=== PATIENT | female | born 1990 | race Caucasian/White ===

== ENCOUNTER 2018-11-21 13:40 | Inpatient (IN) | payer MEDICAID ==
[~2018-11-21] VITALS: Ht 172.7 cm; Wt 104.3 kg
[2018-11-21] MEDS ORDERED: LACT. RINGERS/OXYTOCIN 20UNITS 1,000 ML IV ONE (14:04)
[2018-11-21] MEDS ORDERED: LIDOCAINE 2%HCL (LOCAL ANESTH.) INJ 20ML MDV ONE (14:04)
[2018-11-21] MEDS ORDERED: PHISODERM TOP SOLN 240ML BTL TOP ONE (14:05)
[2018-11-21] MEDS ORDERED: IBUPROFEN 600 MG TAB PO PRN (14:45)
[2018-11-21 15:27] LABS: Hematocrit 37.2 % (36.0-46.0); Hemoglobin 12.3 g/dL (12.2-16.2); Mean Corpuscular Hemoglobin 29.7 pg (28.0-32.0); Mean Corpuscular Volume 89.9 fL (80.0-100.0); Platelet Count (auto) 219 10^3/uL (140-450); Red Blood Cells 4.14 10^6/uL (4.0-5.20); Red Cell Distribution Width 13.8 % (11.8-14.3); White Blood Cell 12.8 10^3/uL (4.4-10.8)
[2018-11-21 15:32] LABS: Basophils % (manual) 0 (0.0-2.0); Blast Cells 0; Eosinophils % (manual) 0 (0-7); Metamyelocytes % 0; Myelocytes % 0; Promyelocytes % 0; Reactive Lymphocytes 0
--- NOTE | 2018-11-21 15:38 | NUR ---
Ambulation: Patient OOB with standby assistance by RN. Patient ambulated to bathroom with steady gait. Patient unable to void at this time. [facility] teaching provided with returned demonstration by patient. Clean gown provided and bed linen changed. Patient ambulated back to bed with steady gait and no distress noted.
[2018-11-21] MEDS ORDERED: PHISODERM TOP SOLN 240ML BTL TOP PRN (15:45)
[2018-11-21] MEDS ORDERED: WITCH HAZEL-GLYCERIN PAD TOP PRN (15:45)
[2018-11-21] MEDS ORDERED: DERMOPLAST 60ML BOTTLE TOP PRN (15:45)
[2018-11-21 16:02] LABS: Urine Bacteria NONE SEEN /hpf (None Seen); Urine Blood 2+ /uL (Negative); Urine Mucus FEW (None Seen); Urine Specific Gravity 1.029 (1.001-1.035); Urine WBC 2 /hpf (0 - 5)
[2018-11-21 16:05] LABS: Albumin 2.7 g/dL (3.4-5.0); Calcium 8.5 mg/dL (8.5-10.1); Potassium 3.9 mmol/L (3.5-5.1)
[2018-11-21 16:09] LABS: Alcohol, Urine < 3.0 mg/dL (0-5); Amphetamine Screen, Urine NEGATIVE (NEGATIVE); Barbiturate Scree,Urine NEGATIVE (NEGATIVE); Benzodiazephine Screen, Urine NEGATIVE (NEGATIVE); Cannabinoid Screen, Urine NEGATIVE (NEGATIVE); Cocaine Screen, Urine NEGATIVE (NEGATIVE); Opiate Scree,Urine NEGATIVE (NEGATIVE); Phencyclidine Screen, Urine NEGATIVE (NEGATIVE)
[2018-11-21 16:10] LABS: BUN/Creatinine Ratio 10.8; Bilirubin, Total 0.6 mg/dL (0.2-1.0); Total Protein 7.1 g/dL (6.4-8.2)
[2018-11-21 16:46] VITALS: BP 132/68
[2018-11-21 17:05] LABS: Band Neutrophils % (manual) 6; Lymphocytes % (manual) 4 (10.0-50.0); Monocytes % (manual) 3 (0-12)
[2018-11-21 19:00] VITALS: BP 121/59
[2018-11-21 23:00] VITALS: BP 106/52
[2018-11-22 03:00] VITALS: BP 110/52
[2018-11-22 07:00] VITALS: BP 107/53
[2018-11-22] MEDS ORDERED: TUBERCULIN PPD 5 UNIT/0.1 ML ID ONE (07:45)
[2018-11-22] MEDS ORDERED: PRENCAP PO (10:55)
[2018-11-22 11:20] VITALS: BP 118/67
--- NOTE | 2018-11-22 11:50 | NUR ---
REPORT PT REPORT RECEIVED FROM Johanne BUSTILLO RN ON STABLE PATIENT, ASSUMING CARE. NO S/S OF DISTRESS OR SOB NOTED.
--- NOTE | 2018-11-22 14:30 | NUR ---
Discharge: Discharge instructions given as ordered. Pt encouraged to follow up with CLAIMS REPRESENTATIVE as instructed. All questions and concerns addressed. Patient verbalized understanding. Medication reconciliation completed and copy given to patient. Patient encouraged to prepare to depart unit.
[2018-11-22 15:10] VITALS: BP 116/61
--- NOTE | 2018-11-22 17:35 | NUR ---
Discharge: Patient taken to vehicle via wheelchair with all personal belongings, accompanied by staff and family member. No distress noted at time of departure, no adverse changes in status since initial assessment.
[2018-11-23 15:58] LABS: RPR Non Reactive (Non Reactive)
== END 2018-11-22 17:35 | disposition home or self-care (01) | DRG 560 ==
LOC: LDRP 13:40 → OBSVTOIN 13:40 → LDRP 17:10
PROVIDERS: ADMIT Specialist; ATTEND Specialist
PROC: 10E0XZZ Delivery of Products of Conception, External Approach (ICD-10-PCS; principal; 2018-11-21)
DX: O63.1 Prolonged second stage (of labor) (principal); Z37.0 Single live birth; Z3A.39 39 weeks gestation of pregnancy
CPT/HCPCS: 36415; 59025; 59409; 80053; 80307; 81001; 81002; 85007; 85027; 86592; 86850; 86900; 86901; 96365; 96366; G0378; J2590

== ENCOUNTER 2021-01-18 11:00 | Observation (INO) | payer MEDICAID ==
[~2021-01-18 11:00] MED LIST: PRENCAP PO
== END 2021-01-18 17:05 | disposition home or self-care (01) ==
LOC: LDRP 16:17
PROVIDERS: ADMIT Specialist; ATTEND Specialist
DX: O99.891 Other specified diseases and conditions complicating pregnancy (principal); N13.30 Unspecified hydronephrosis; Z3A.30 30 weeks gestation of pregnancy
CPT/HCPCS: 59025; 76818; 81002; G0378

== ENCOUNTER 2021-01-25 09:24 | Observation (INO) | payer MEDICAID | END 2021-01-25 14:16 | disposition home or self-care (01) | LOC: LDRP 13:16 | PROVIDERS: ADMIT Obstetrics & Gynecology; ATTEND Obstetrics & Gynecology | DX: O99.891 Other specified diseases and conditions complicating pregnancy (principal); N13.30 Unspecified hydronephrosis; Z3A.31 31 weeks gestation of pregnancy; Z87.891 Personal history of nicotine dependence | CPT/HCPCS: 59025; 76818; 81002; 94760; G0378 ==

== ENCOUNTER 2021-02-01 08:17 | Observation (INO) | payer MEDICAID ==
[~2021-02-01] VITALS: Ht 172.7 cm; Wt 99.8 kg
== END 2021-02-01 10:00 | disposition home or self-care (01) ==
LOC: LDRP 08:17
PROVIDERS: ADMIT Specialist; ATTEND Specialist
DX: O40.3XX0 Polyhydramnios, third trimester, not applicable or unspecified (principal); Z3A.32 32 weeks gestation of pregnancy
CPT/HCPCS: 59025; 76818; 81002; G0378

== ENCOUNTER 2021-02-06 15:07 | Observation (INO) | payer MEDICAID | END 2021-02-06 17:40 | disposition home or self-care (01) | LOC: LDRP 15:07 | PROVIDERS: ADMIT Obstetrics & Gynecology; ATTEND Obstetrics & Gynecology | DX: O99.891 Other specified diseases and conditions complicating pregnancy (principal); N13.0 Hydronephrosis with ureteropelvic junction obstruction; Z3A.33 33 weeks gestation of pregnancy | CPT/HCPCS: 59025; 76818; 81002; 94760; G0378 ==

== ENCOUNTER 2021-02-15 09:00 | Observation (INO) | payer MEDICAID | END 2021-02-15 10:08 | disposition home or self-care (01) | LOC: LDRP 09:00 | PROVIDERS: ADMIT Obstetrics & Gynecology; ATTEND Obstetrics & Gynecology | DX: O99.891 Other specified diseases and conditions complicating pregnancy (principal); N13.30 Unspecified hydronephrosis; Z3A.34 34 weeks gestation of pregnancy | CPT/HCPCS: 59025; 76818; 81002; G0378 ==

== ENCOUNTER 2021-02-22 09:30 | Observation (INO) | payer MEDICAID | END 2021-02-22 11:29 | disposition home or self-care (01) | LOC: LDRP 09:30 | PROVIDERS: ADMIT Specialist; ATTEND Specialist | DX: O35.8XX0 Maternal care for other (suspected) fetal abnormality and damage, not applicable or unspecified (principal); Z3A.35 35 weeks gestation of pregnancy | CPT/HCPCS: 59025; 76818; 81002; G0378 ==

== ENCOUNTER 2021-03-01 10:32 | Observation (INO) | payer MEDICAID | END 2021-03-01 11:35 | disposition home or self-care (01) | LOC: LDRP 10:32 | PROVIDERS: ADMIT Obstetrics & Gynecology; ATTEND Obstetrics & Gynecology | DX: O35.8XX0 Maternal care for other (suspected) fetal abnormality and damage, not applicable or unspecified (principal); Z3A.36 36 weeks gestation of pregnancy | CPT/HCPCS: 59025; 76818; 81002; G0378 ==

== ENCOUNTER 2021-03-08 16:10 | Observation (INO) | payer MEDICAID | END 2021-03-08 17:00 | disposition home or self-care (01) | LOC: LDRP 16:10 | PROVIDERS: ADMIT Specialist; ATTEND Specialist | DX: O99.891 Other specified diseases and conditions complicating pregnancy (principal); N13.30 Unspecified hydronephrosis; Z3A.37 37 weeks gestation of pregnancy | CPT/HCPCS: 59025; 76818; 81002; G0378 ==

== ENCOUNTER 2021-03-14 19:13 | Observation (INO) | payer MEDICAID ==
[~2021-03-14] VITALS: Ht 172.7 cm; Wt 99.8 kg
[2021-03-14 21:37] LABS: Alcohol, Urine < 3.0 mg/dL (0-10); Amphetamine Screen, Urine NEGATIVE (NEGATIVE); Barbiturate Scree,Urine NEGATIVE (NEGATIVE); Benzodiazephine Screen, Urine NEGATIVE (NEGATIVE); Cannabinoid Screen, Urine NEGATIVE (NEGATIVE); Cocaine Screen, Urine NEGATIVE (NEGATIVE); Opiate Scree,Urine NEGATIVE (NEGATIVE); Phencyclidine Screen, Urine NEGATIVE (NEGATIVE)
== END 2021-03-14 20:35 | disposition home or self-care (01) ==
LOC: LDRP 19:13
PROVIDERS: ADMIT Obstetrics & Gynecology; ATTEND Obstetrics & Gynecology
DX: O99.891 Other specified diseases and conditions complicating pregnancy (principal); N13.30 Unspecified hydronephrosis; O62.9 Abnormality of forces of labor, unspecified; Z3A.38 38 weeks gestation of pregnancy
CPT/HCPCS: 59025; 76818; 80307; 81002; G0378

== ENCOUNTER 2021-03-21 19:07 | Observation (INO) | payer MEDICAID ==
[~2021-03-21] VITALS: Ht 172.7 cm; Wt 103.4 kg
== END 2021-03-21 20:19 | disposition home or self-care (01) ==
LOC: LDRP 19:07
PROVIDERS: ADMIT Obstetrics & Gynecology; ATTEND Obstetrics & Gynecology
DX: O99.891 Other specified diseases and conditions complicating pregnancy (principal); N13.30 Unspecified hydronephrosis; Z3A.39 39 weeks gestation of pregnancy
CPT/HCPCS: 59025; 76818; 81002; G0378

== ENCOUNTER 2021-03-24 12:00 | Observation (INO) | payer MEDICAID | END 2021-03-24 13:30 | disposition home or self-care (01) | LOC: LDRP 12:00 | PROVIDERS: ADMIT Specialist; ATTEND Specialist | DX: O48.0 Post-term pregnancy (principal); Z3A.40 40 weeks gestation of pregnancy | CPT/HCPCS: 59025; 76818; 81002; G0378 ==

== ENCOUNTER 2021-03-25 06:45 | Inpatient (IN) | payer MEDICAID ==
[~2021-03-25] VITALS: Ht 172.7 cm; Wt 90.7 kg
[2021-03-25] MEDS ORDERED: WITCH HAZEL-GLYCERIN PAD TOP PRN (07:30)
[2021-03-25] MEDS ORDERED: LACTATED RINGER'S 1,000 ML IV SCH (07:30)
[2021-03-25] MEDS ORDERED: PHISODERM TOP SOLN 240ML BTL TOP PRN (07:30)
[2021-03-25] MEDS ORDERED: DERMOPLAST 60ML BOTTLE TOP PRN (07:30)
[2021-03-25 07:53] LABS: Basophils # (auto) 0 10 ^3/uL (0-0.2); Basophils % (auto) 0.2 % (0.0-2.0); Eosinophils # (auto) 0 10 ^3/uL (0-0.8); Eosinophils % (auto) 0.3 % (0.0-7.0); Hematocrit 34.1 % (36.0-46.0); Lymphocytes # (auto) 1.2 10 ^3/uL (0.4-5.4); Lymphocytes % (auto) 10.9 % (10.0-50.0); Mean Corpuscular Hemoglobin 31.9 pg (28.0-32.0); Mean Corpuscular Hgb Conc. 35.3 g/dL (32.0-36.0); Mean Corpuscular Volume 90.5 fL (80.0-100.0); Monocytes # (auto) 0.5 10 ^3/uL (0-1.3); Monocytes % (auto) 4.9 % (0.0-12.0); Neutrophils # (auto) 9.2 10 ^3/uL (1.6-8.6); Neutrophils % (auto) 83.7 % (37.0-80.0); Platelet Count (auto) 187 10^3/uL (140-450); Red Blood Cells 3.76 10^6/uL (4.0-5.20); Red Cell Distribution Width 13.3 % (11.8-14.3); White Blood Cell 10.9 10^3/uL (4.4-10.8)
[2021-03-25 08:07] LABS: INR 0.94 (0.9-1.15); Partial Thromboplastin Time 23.4 sec (23.0-31.2)
[2021-03-25 08:13] LABS: Albumin 2.5 g/dL (3.4-5.0); BUN/Creatinine Ratio 11.3; Calcium 8.3 mg/dL (8.5-10.1); Potassium 3.4 mmol/L (3.5-5.1)
[2021-03-25 08:16] LABS: Bilirubin, Total 0.9 mg/dL (0.2-1.0); Total Protein 6.6 g/dL (6.4-8.2)
[2021-03-25] MEDS ORDERED: IBUPROFEN 600 MG TAB PO PRN (08:30)
[2021-03-25] MEDS ORDERED: LACT. RINGERS/OXYTOCIN 20UNITS 500 ML IV ONE ×2 (08:30→09:00)
[2021-03-25] MEDS ORDERED: ACETAMINOPHEN 325 MG TAB PO PRN (08:30)
[2021-03-25 10:40] VITALS: BP 116/66
[2021-03-25 11:52] LABS: Urine Bacteria NONE SEEN /hpf (None Seen); Urine Blood 3+ /uL (Negative); Urine Specific Gravity 1.004 (1.001-1.035); Urine WBC 43 /hpf (0 - 5)
[2021-03-25 12:08] LABS: Alcohol, Urine < 3.0 mg/dL (0-10); Amphetamine Screen, Urine NEGATIVE (NEGATIVE); Barbiturate Scree,Urine NEGATIVE (NEGATIVE); Benzodiazephine Screen, Urine NEGATIVE (NEGATIVE); Cannabinoid Screen, Urine NEGATIVE (NEGATIVE); Cocaine Screen, Urine NEGATIVE (NEGATIVE); Opiate Scree,Urine NEGATIVE (NEGATIVE); Phencyclidine Screen, Urine NEGATIVE (NEGATIVE)
[2021-03-25 15:00] VITALS: BP 110/55
[2021-03-25 18:52] VITALS: BP 117/57
[2021-03-25 23:10] VITALS: BP 98/53
[2021-03-26 03:23] VITALS: BP 99/50
[2021-03-26 06:07] LABS: RPR Non Reactive (Non Reactive)
[2021-03-26 06:51] VITALS: BP 135/62
== END 2021-03-26 10:05 | disposition home or self-care (01) | DRG 560 ==
LOC: LDRP 06:45
PROVIDERS: ADMIT Obstetrics & Gynecology; ATTEND Obstetrics & Gynecology
PROC: 10E0XZZ Delivery of Products of Conception, External Approach (ICD-10-PCS; principal; 2021-03-25)
DX: O69.81X0 Labor and delivery complicated by cord around neck, without compression, not applicable or unspecified (principal); Z20.822 Contact with and (suspected) exposure to COVID-19; Z90.49 Acquired absence of other specified parts of digestive tract; Z3A.40 40 weeks gestation of pregnancy; Z37.0 Single live birth
CPT/HCPCS: 36415; 59025; 59409; 80053; 80307; 81001; 85025; 85049; 85610; 85730; 86592; 86850; 86900; 86901; 87426; 94760; 96365; 96366; G0378

== ENCOUNTER 2025-02-16 13:09 | Emergency (ER) | payer MEDICAID ==
[~2025-02-16] VITALS: Ht 154.9 cm; Wt 76.3 kg
[2025-02-16 14:08] VITALS: BP 120/73; RESP 16; TEMP 98.6; O2SAT 99
--- NOTE | 2025-02-16 14:08 | ED.PDOC ---
History of Present Illness HPI Comments A 34 YEAR OLD FEMALE PRESENTS TO THE ED WITH CHIEF COMPLAINT OF NECK PAIN. PATIENT REPORTS THAT SHE HAS BEEN EXPERIENCING TINGLING TO HER LEFT ARM AND LEG FOR THE PAST 3 DAYS, BUT THIS MORNING STARTED TO HAVE LEFT SIDED NECK PAIN THAT RADIATE DOWN HER LEFT ARM. PATIENT DENIES ANY FEVER, DIZZINESS, N/V, HEADACHE, BACK PAIN, NUMBNESS, OR WEAKNESS. PATIENT DENIES ANY FURTHER SYMPTOMS AT THIS TIME. Chief Complaint: Neck Pain Time Seen by MD: 14:04 Primary Care Provider: NONE Reviewed Notes: Nurses Notes, Medications, Allergies Allergies: Coded Allergies: NO KNOWN ALLERGIES (Unverified , 11/21/18) CALLED [facility]P/ VERIFIED THAT PT HAS NKA Home Meds Active Scripts Methylprednisolone (Medrol Dosepak) 4 Mg Nishant, 4 MG PO UD, #21 TAB UAD Prov:BANG DE LA CRUZ 02/16/25 Ibuprofen (Ibuprofen) 800 Mg Tab, 1 TAB PO TID, #30 TAB Prov:BANG DE LA CRUZ 02/16/25 Reported Medications Without A W/ Fe Fumar ([place]) Cap, 1 TAB PO DAILY, CAP 11/22/18 Information Source: Patient Mode of Arrival: Ambulatory Severity: Moderate Timing: Hours Duration: Since onset Prehospital treatment: None Medication Refill: For: Pain (LEFT SIDE NECK TO LEFT HAND ) Past Medical History PAST MEDICAL HISTORY: Denies Surgical History: Denies all surgeries BLUEPRINT CUTTER History: No Pertinent BLUEPRINT CUTTER History Family History Family History: Reviewed,noncontributory to illness Social History Smoker: Non-Smoker Alcohol: Denies ETOH Use Drugs: Denies Drug Use Lives In: Home Constitutional: denies: chills, diaphoresis, fatigue, fever, malaise, sweats, weakness, others EENTM: denies: blurred vision, double vision, ear bleeding, ear discharge, ear drainage, ear pain, ear ringing, eye pain, eye redness, hearing loss, mouth pain, mouth swelling, nasal discharge, nose bleeding, nose congestion, nose pain, photophobia, tearing, throat pain, throat swelling, voice changes, others Respiratory: denies: cough, hemoptysis, orthopnea, SOB at rest, shortness of breath, SOB with excertion, stridor, wheezing, others Cardiovascular: denies: chest pain, dizzy spells, diaphoresis, Dyspnea on exertion, edema, irregular heart beat, left arm pain, lightheadedness, palpitations, PND, syncope, others Gastrointestinal: denies: abdomen distended, abdominal pain, blood streaked bowels, constipated, diarrhea, dysphagia, difficulty swallowing, hematemesis, melena, nausea, poor appetite, poor fluid intake, rectal bleeding, rectal pain, vomiting, others Genitourinary: denies: abnormal vagina bleeding, burning, dyspareunia, dysuria, flank pain, frequency, hematuria, incontinence, pain, , vagina discharge, urgency, others Neurological: reports: tingling; denies: dizziness, fainting, headache, left sided numbness, left sided weakness, numbness, paresthesia, pre-existing deficit, right sided numbness, right sided weakness, seizure, speech problems, tremors, weakness, others Musculoskeletal: reports: muscle pain, neck pain; denies: back pain, gout, joint pain, joint swelling, muscle stiffness, others Integumetry: denies: bruises, change in color, change in hair/nails, dryness, laceration, lesions, lumps, rash, wounds, others Allergic/Immunocompromised: denies: Difficulty Healing, Frequent Infections, Hives, Itching, others Hematologic/Lymphatic: denies: anemia, blood clots, easy bleeding, easy bruising, swollen glands, others Endocrine: denies: excessive hunger, excessive sweating, excessive thirst, excessive urination, flushing, intolerance to cold, intolerance to heat, unexplained weight gain, unexplained weight loss, others Psychiatric: denies: anxiety, bipolar disorder, depression, hopeless, panic disorder, schizophrenia, sleepless, suicidal, others All Other Systems: Reviewed and Negative Physical Exam General Appearance: No Apparent Distress, Normal HEENT: Normal ENT Inspection, PERRL/EOMI Neck: Full Range of Motion, Normal Inspection, Supple, Tender Lateral (MUSCLE SPASM ON LEFT SIDE NECK, NO BONY TENDERNESS, SWELLING AND DEFORMITY. ) Respiratory: Chest Non-Tender, Lungs Clear, No Accessory Muscle Use, No Respiratory Distress, Normal Breath Sounds Cardiovascular: No Edema, No JVD, No Murmur, No Gallop, Normal Peripheral Pulses, Regular Rate/Rhythm Breast Exam: Deferred Gastrointestinal: No Organomegaly, Non Tender, No Pulsatile Mass, Normal Bowel Sounds, Soft Genitalia: Deferred Pelvic: Deferred Rectal: Deferred Extremities: No calf tenderness, Normal capillary refill, Normal inspection, Normal range of motion, Non-tender, No pedal edema Musculoskeletal : Apperance: Normal Neurologic: Alert, headline writer II-XII nml as Tested, No Motor Deficits, Normal Affect, Normal Mood, No Sensory Deficits Cerebellar Function: Normal Reflexes: Normal Skin: Dry, Normal Color, Warm Peripheral Pulses: 2+ carotid (R), 2+ carotid (L) Lymphatic: No Adenopathy Was a procedure done? Was a procedure done?: No EKG EKG : Pulse Rate (adult): 58 [place]: Normal Cardiac Rhythm: NSR Block: None Hypertrophy: None ST: Normal Differential Dx Considerations may include: CERVICAL MUSCLE STRAIN, ANXIETY REACTION, CERVICAL RADICULOPATHY X-Ray, Labs, Meds, VS Vital Signs Date Time Temp Pulse Resp B/P (MAP) Pulse Ox O2 Delivery O2 Flow Rate FiO2 02/16/25 15:16 58 02/16/25 14:11 58 02/16/25 14:08 58 16 99 Room Air 02/16/25 14:08 98.6 58 16 120/73 (89) 99 98.6 02/16/25 13:38 98.5 70 16 125/60 (81) 97 98.5 C-SPINE XR: FINDINGS: The cervical vertebral alignment is normal. The predental space is normal. The intervertebral disc spaces are well-maintained. No significant facet arthropathy is noted. No acute fracture, vertebral compression deformity or aggressive osseous lesions. The imaged lung apices are unremarkable. IMPRESSION: No acute fracture. X-Ray, Labs, Meds, VS Comment EXTERNAL MEDICAL RECORDS REVIEWED: [NONE] INDEPENDENT HISTORIANS: [NONE] SOCIAL DETERMINANTS OF HEALTH: [NONE] LABS ORDERED: EKG REVIEWED AND INTERPRETED RESULTS: XR C-SPINE IMAGING ORDERED: XR C-SPINE TREATMENTS ORDERED: NONE PROCEDURES PERFORMED: NONE CRITICAL CARE TIME: NONE I HAVE DISCUSSED THE PATIENT WITH THE ATTENDING PHYSICIAN DR. KINNEY AND HE AGREES WITH THE PATIENT'S PLAN OF CARE AND DISPOSITION. BASED ON HISTORY OF PRESENT ILLNESS, AND PHYSICAL EXAM, PATIENT WILL BE DISCHARGED HOME. DISCUSSED PLAN FOR DISCHARGE HOME WITH RX MOTRIN AND MEDROL DOSE PACK. MEDICATION WARNINGS GIVEN. SHARED DECISION MAKING: DISCUSSED WITH PATIENT THAT THEIR WORKUP WAS NORMAL. PATIENT INSTRUCTED TO FOLLOW UP WITH PRIMARY CARE PROVIDER IN 1-2 DAYS FOR RE- EVALUATION OF SYMPTOMS. PATIENT VERBALIZES UNDERSTANDING TO RETURN TO ED FOR NEW OR WORSENING SYMPTOMS OR IF FOLLOW UP WITH PCP CANNOT BE OBTAINED. PATIENT FEELS COMFORTABLE GOING HOME AT THIS TIME. ALL QUESTIONS ADDRESSED AT TIME OF DISCHARGE. Time of 1ST Reevaluation: 15:34 Reevaluation 1ST: Improved Patient Education/Counseling: Diagnosis, Treatment, Need For Follow Up Family Education/Counseling: Diagnosis, Treatment, No Family Present Medical Screening: No EMC Exist At This Time Departure 1 Departure Time of Disposition: 15:36 Impression: Primary Impression: Cervical muscle strain Qualified Codes: S16.1XXA - Strain of muscle, fascia and tendon at neck level, initial encounter Disposition: HOME / SELF CARE / HOMELESS Condition: Stable Additional Instructions: FOLLOW-UP WITH PCP IN 1 TO 2 DAYS. TAKE MEDICATIONS PRESCRIBED. RETURN TO ED FOR ANY NEW OR WORSENING SYMPTOMS. e-Prescriptions Methylprednisolone (Medrol Dosepak) 4 Mg Nishant 4 MG PO UD, #21 TAB UAD Prov: BANG DE LA CRUZ 02/16/25 Ibuprofen (Ibuprofen) 800 Mg Tab 1 TAB PO TID, #30 TAB Prov: BANG DE LA CRUZ 02/16/25 Discharged With: Self Critical Care Note Critical Care Time?: No Stability Stability form required: No Heart Score Heart Score: Heart Score Response (Comments) Value History Slightly Suspicious 0 EKG Normal 0 Age <45 0 Risk Factors No known risk factors 0 Troponin Normal limit 0 Total 0 I personally scribed for BANG DE LA CRUZ ([email or web address]) on 02/16/25 at 14:08. Elect ronically submitted by John Islas ([email or web address]). I personally scribed for BANG DE LA CRUZ ([email or web address]) on 02/16/25 at 15:16. Electro nically submitted by John Islas ([email or web address]). BANG DE LA CRUZ February 16, 2025 14:08
--- NOTE | 2025-02-16 15:03 | DVH ---
INDICATION: NECK PAIN TO LEFT ARM COMPARISON: None TECHNIQUE: 3 views of the cervical spine were obtained. FINDINGS: The cervical vertebral alignment is normal. The predental space is normal. The intervertebral disc spaces are well-maintained. No significant facet arthropathy is noted. No acute fracture, vertebral compression deformity or aggressive osseous lesions. The imaged lung apices are unremarkable. IMPRESSION: No acute fracture.
[2025-02-16] MEDS ORDERED: METH4PAK PO (15:15)
[2025-02-16] MEDS ORDERED: IBUP-1456 PO (15:15)
[2025-02-16 15:16] VITALS: PULSE 58
--- NOTE | 2025-02-17 13:50 | ECG ---
[facility] Test Date: 2025-02-16 Test Time: 14:11:41 Pat Name: QUAN CRYSTAL Department: ER Room: Gender: F [employer] Superintendent: JANIE : 1990 Requested By: BANG DE LA CRUZ Order Number: [id number] Reading MD: Renny Hale Measurements Intervals Nancy Rate: 58 P: 66 NC: 142 QRS: 79 QRSD: 97 T: 50 QT: 389 QTc: 383 Interpretive Statements Sinus rhythm Electronically Signed On 02-20-2025 11:51:20 PDT by Renny Hale Please click the below link to view image of tracing.
== END 2025-02-16 15:31 | disposition home or self-care (01) ==
LOC: ER 13:09
DX: S16.1XXA Strain of muscle, fascia and tendon at neck level, initial encounter (principal); Z79.1 Long term (current) use of non-steroidal anti-inflammatories (NSAID); X58.XXXA Exposure to other specified factors, initial encounter; Y93.89 Activity, other specified; Y92.89 Other specified places as the place of occurrence of the external cause; Y99.8 Other external cause status
CPT/HCPCS: 72040; 93005